=== PATIENT | male | born 1990 | race Caucasian/White ===

== ENCOUNTER → 2018-04-09 | Outpatient (CLI) | payer BC ==
--- NOTE | 2018-04-09 13:56 | RAD ---
History: Low back pain, worse over last few months. Comparison: None. Findings: AP and lateral views of the lumbar spine performed weightbearing. 5 lumbar type vertebral bodies are present. No acute fracture or acute malalignment is identified. No spondylolysis or spondylolisthesis is appreciated. No significant degeneration is appreciated. There is mild levoconvex curvature of the lumbar spine. Impression: Mild levoconvex curvature of lumbar spine. Otherwise, unremarkable lumbar spine radiographs. Electronically signed by: Fausto Richter MD (04/09/2018 1:53 PM) [place] [id number]
== END | disposition home or self-care (01) ==
LOC: PMG 11:06
PROVIDERS: ATTEND Physician Assistant
DX: M41.86 Other forms of scoliosis, lumbar region (principal)
CPT/HCPCS: 72100